=== PATIENT | female | born 1980 | race Caucasian/White ===

== ENCOUNTER 2017-04-05 11:36 | Emergency (ER) | payer OTHER ==
[~2017-04-05] VITALS: Ht 162.6 cm; Wt 77.1 kg
[2017-04-05] MEDS ORDERED: ONDANSETRON HCL/PF 4 MG/2 ML VIAL ONE (11:55)
[2017-04-05] MEDS ORDERED: HYDROMORPHONE 1 MG/1 ML DISP.SYRIN ONE ×2 (11:56→13:57)
[2017-04-05] MEDS ORDERED: ONDANSETRON HCL/PF 4 MG/2 ML VIAL IVP ONE (12:00)
[2017-04-05] MEDS ORDERED: HYDROMORPHONE INJ 2 MG/ML DISP.SYRIN IV ONE (12:00)
[2017-04-05] MEDS ORDERED: IV NS 0.9% 1,000 ML BAG IV ONE (12:00)
--- NOTE | 2017-04-05 12:00 | NUR ---
[id number] FROM HOME: CHEST PAIN, MOSTLY ON L SIDE, RADIATES TO BACK x 2 HR [employer]. SEEN BY MD AT BS. VSS. REPORTS BEING STRESSED LATELY. SAFETY AND COMFORT MEASURES PROVIDED. WILL MONITOR.
--- NOTE | 2017-04-05 12:05 | NUR ---
SHERRI AT BS.
--- NOTE | 2017-04-05 12:10 | NUR ---
IV ACCESS STARTED. BLOOD DRAWN. PT MEDICATED ORDERED.
[2017-04-05 12:13] LABS: BASOPHILS % (AUTO) 0.4 % (0.0-2.0); EOSINOPHILS # (AUTO) 0.2 /CMM (0.0-0.7); EOSINOPHILS % (AUTO) 2.3 % (0.0-6.0); HEMATOCRIT 45 % (33-45); HEMOGLOBIN 15.1 g/dL (11.5-14.8); MEAN CORPUSCULAR HEMOGLOBIN 30 PG (26.0-33.0); MEAN CORPUSCULAR HGB CONC 34 g/dl (31.0-36.0); MEAN CORPUSCULAR VOLUME 90 fL (82-100); MONOCYTES # (AUTO) 0.5 /CMM (0.1-1.30); MONOCYTES % (AUTO) 6.5 % (2.0-12.0); NEUTROPHILS # (AUTO) 5.3 /CMM (1.8-8.9); NEUTROPHILS % (AUTO) 65.8 % (43.0-81.0); PLATELET COUNT (AUTO) 252 /CMM (150-450); RDW COEFFICIENT OF VARIATION 12.5 (11.5-15.0); RED BLOOD CELL COUNT(AUTO) 5.03 MIL/uL (4.0-5.2)
[2017-04-05 12:14] LABS: APPEARANCE,URINE Clear (CLEAR); BILIRUBIN,URINE Negative (NEGATIVE); BLOOD, URINE Trace-lysed Ery/uL (NEGATIVE); COLOR,URINE Light yellow (YELLOW); KETONES,URINE Negative (NEGATIVE); LEUKOCYTE ESTERASE ,URINE Trace (NEGATIVE); NITRITE, URINE Negative (NEGATIVE); PROTEIN,URINE Negative (NEGATIVE); UGLUCOSE Negative (NEGATIVE); UROBILINOGEN,URINE 0.2 EU/dL (0.2)
[2017-04-05 12:20] LABS: BACTERIA,URINE Rare /HPF (None Seen); RBC,URINE 0-3 /HPF (0-2)
[2017-04-05 12:21] LABS: SQUAMOUS EPITHELIAL CELL,UR Moderate /HPF (None Seen)
--- NOTE | 2017-04-05 12:21 | NUR ---
ILDA CROWE AT BS.
[2017-04-05 12:22] LABS: CALCIUM, SERUM 8.6 mg/dL (8.5-10.1); CARBON DIOXIDE 24 mmol/L (21-32); CHLORIDE 103 mmol/L (98-107); CREATININE 0.7 mg/dL (0.6-1.3); GLUCOSE 90 mg/dL (74-106); POTASSIUM 4.3 mmol/L (3.5-5.1); SODIUM SERUM 135 mmol/L (136-145); UREA NITROGEN, BLOOD 10 mg/dL (7-18)
[2017-04-05 12:26] LABS: INR 0.83 (0.87-1.13); PROTHROMBIN TIME 8.6 SECS (9.5-12.7)
[2017-04-05 12:29] LABS: ALANINE AMINOTRANSFERASE 27 U/L (12-78); ALBUMIN 4.4 g/dL (3.4-5.0); ALKALINE PHOSPHATASE 57 U/L (46-116); ASPARTATE AMINOTRANSFERASE 17 U/L (15-37); BILIRUBIN,DIRECT 0.1 mg/dL (0.0-0.2); BILIRUBIN,TOTAL 0.4 mg/dL (0.2-1.0); LIPASE 121 U/L (73-393); TOTAL PROTEIN, SERUM 7.7 g/dL (6.4-8.2)
[2017-04-05 12:31] LABS: TROPONIN I < 0.017 ng/mL (0.00-0.056)
[2017-04-05] MEDS ORDERED: HYDROMORPHONE 1 MG/1 ML DISP.SYRIN IV ONE (13:30)
[2017-04-05] MEDS ORDERED: IV NS 0.9% 250 ML IV ONE (14:22)
[2017-04-05] MEDS ORDERED: IOHEXOL-350 100 ML VIAL IV ONE (14:22)
--- NOTE | 2017-04-05 14:37 | NUR ---
PT TAKEN TO CT.
--- NOTE | 2017-04-05 15:57 | NUR ---
Patient discharged to home in stable condition. Written and verbal after care instructions given. Patient verbalizes understanding of instruction.
--- NOTE | 2017-04-05 15:57 | NUR ---
IV removed. Catheter intact and site benign. Pressure and 4x4 applied to site. No bleeding noted.
[2017-04-05 16:10] VITALS: BP 124/71
== END 2017-04-05 16:11 | disposition home or self-care (01) ==
LOC: ER 11:40
DX: R07.81 Pleurodynia (principal); N83.209 Unspecified ovarian cyst, unspecified side; F17.200 Nicotine dependence, unspecified, uncomplicated; R79.1 Abnormal coagulation profile; Z85.850 Personal history of malignant neoplasm of thyroid
CPT/HCPCS: 36415; 71010; 71275; 76705; 80048; 80076; 81001; 83690; 84484; 84703; 85025; 85730; 93005; 96361; 96374; 96375; 96376; 99285; A4606; J1170 ×2; J2405; J7050; Q9967; Z7610; 81000-TC

== ENCOUNTER → 2017-07-31 | Emergency (ER) | payer OTHER ==
[~2017-07-31] VITALS: Ht 162.6 cm; Wt 79.4 kg
[~2017-07-31] MED LIST: CEFTRIAXONE 1GM BAG (ER ONLY) 50 ML IV ONE; CEFTRIAXONE 2 G in IV D5W 50 ML IV ONE; IV NS 0.9% 1,000 ML BAG IV ONE; MORPHINE SULFATE INJ 2 MG/ML DISP.SYRIN IV ONE; MORPHINE SULFATE INJ 4 MG/ML DISP.SYRIN ONE; ONDANSETRON HCL/PF 4 MG/2 ML VIAL IVP ONE
[2017-07-31 16:04] VITALS: BP 105/72
[2017-07-31 16:28] LABS: BASOPHILS % (AUTO) 0.6 % (0.0-2.0); EOSINOPHILS # (AUTO) 0.2 /CMM (0.0-0.7); EOSINOPHILS % (AUTO) 2.2 % (0.0-6.0); HEMATOCRIT 44 % (33-45); HEMOGLOBIN 15.2 g/dL (11.5-14.8); LYMPHOCYTES # (AUTO) 2.1 /CMM (0.8-4.8); LYMPHOCYTES % (AUTO) 25.9 % (20.0-44.0); MEAN CORPUSCULAR HEMOGLOBIN 30 PG (26.0-33.0); MEAN CORPUSCULAR HGB CONC 35 g/dl (31.0-36.0); MEAN CORPUSCULAR VOLUME 86 fL (82-100); MONOCYTES # (AUTO) 0.7 /CMM (0.1-1.30); MONOCYTES % (AUTO) 8.7 % (2.0-12.0); NEUTROPHILS # (AUTO) 5.2 /CMM (1.8-8.9); NEUTROPHILS % (AUTO) 62.6 % (43.0-81.0); PLATELET COUNT (AUTO) 205 /CMM (150-450); RDW COEFFICIENT OF VARIATION 11.9 (11.5-15.0); RED BLOOD CELL COUNT(AUTO) 5.13 MIL/uL (4.0-5.2); WHITE BLOOD COUNT (AUTO) 8.2 K/uL (4.3-11.0)
[2017-07-31 16:31] LABS: APPEARANCE,URINE Slightly Cloudy (CLEAR); BILIRUBIN,URINE Negative (NEGATIVE); BLOOD, URINE Trace-intact Ery/uL (NEGATIVE); COLOR,URINE Yellow (YELLOW); KETONES,URINE Negative (NEGATIVE); LEUKOCYTE ESTERASE ,URINE Small (NEGATIVE); NITRITE, URINE Negative (NEGATIVE); PROTEIN,URINE Negative (NEGATIVE); UGLUCOSE Negative (NEGATIVE); UROBILINOGEN,URINE 0.2 EU/dL (0.2)
[2017-07-31 16:38] LABS: CALCIUM, SERUM 8.8 mg/dL (8.5-10.1); CREATININE 0.7 mg/dL (0.6-1.3); POTASSIUM 3.8 mmol/L (3.5-5.1)
[2017-07-31 16:43] LABS: BACTERIA,URINE 2+ /HPF (None Seen); SQUAMOUS EPITHELIAL CELL,UR Moderate /HPF (None Seen)
--- NOTE | 2017-07-31 18:31 | NUR ---
PT GIVEN D/C INSTRUCTIONS. PT GIVEN NEW RX'S. PT HAS NO FURTHER QUESTIONS/CONCERNS. NAD. FAMILY AT BEDSIDE.
== END | disposition home or self-care (01) ==
LOC: ER 16:04
DX: N20.0 Calculus of kidney (principal); F17.200 Nicotine dependence, unspecified, uncomplicated; E03.9 Hypothyroidism, unspecified; Z85.850 Personal history of malignant neoplasm of thyroid
CPT/HCPCS: 36415; 74176; 80048; 81001; 84703; 85025; 87086; 96361; 96365; 96375; 99285; A4606; J0696 ×3; J2270; J7030; J7060; Z7610; 81000-TC

== ENCOUNTER 2017-08-10 15:03 | Emergency (ER) | payer OTHER ==
[~2017-08-10] VITALS: Ht 170.2 cm; Wt 84.8 kg
--- NOTE | 2017-08-10 15:10 | NUR ---
[id number] FROM HOME FOR FEVER, COUGH, PLEURITIC CHEST WALL PAIN, NAUSEA, BODY ACHES YESTERDAY, NAD NOTED, VSS, RESP EVEN AND UNLABORED, PT WAS PUT ON MONITOR, WAITING FOR MD GUTIERREZ.
[2017-08-10] MEDS ORDERED: HYDROCODONE BIT/HOMATROPINE 5 ML UDC ONE ×2 (15:28→22:51)
[2017-08-10] MEDS ORDERED: IBUPROFEN 600 MG TABLET PO ONE ×2 (15:28→15:30)
[2017-08-10] MEDS ORDERED: ACETAMINOPHEN ES 500 MG TABLET ONE (15:28)
[2017-08-10] MEDS ORDERED: HYDROCODONE BIT/HOMATROPINE 5 ML UDC PO ONE ×2 (15:30→23:00)
[2017-08-10] MEDS ORDERED: ACETAMINOPHEN ES 500 MG TABLET PO ONE (15:30)
[2017-08-10] MEDS ORDERED: IV NS 0.9% 1,000 ML BAG IV ONE (16:30)
[2017-08-10] MEDS ORDERED: ALBUTEROL FS 2.5 MG/3 ML VIAL.NEB NEB ONE (16:30)
[2017-08-10 16:44] LABS: BASOPHILS # (AUTO) 0.1 /CMM (0.0-0.2); BASOPHILS % (AUTO) 1.4 % (0.0-2.0); EOSINOPHILS # (AUTO) 0.1 /CMM (0.0-0.7); EOSINOPHILS % (AUTO) 0.9 % (0.0-6.0); HEMATOCRIT 40 % (33-45); HEMOGLOBIN 13.9 g/dL (11.5-14.8); LYMPHOCYTES # (AUTO) 0.3 /CMM (0.8-4.8); LYMPHOCYTES % (AUTO) 4.6 % (20.0-44.0); MEAN CORPUSCULAR HEMOGLOBIN 30 PG (26.0-33.0); MEAN CORPUSCULAR HGB CONC 35 g/dl (31.0-36.0); MEAN CORPUSCULAR VOLUME 86 fL (82-100); MONOCYTES # (AUTO) 0.5 /CMM (0.1-1.30); MONOCYTES % (AUTO) 7.2 % (2.0-12.0); NEUTROPHILS # (AUTO) 6.5 /CMM (1.8-8.9); NEUTROPHILS % (AUTO) 85.9 % (43.0-81.0); PLATELET COUNT (AUTO) 169 /CMM (150-450); RDW COEFFICIENT OF VARIATION 11.7 (11.5-15.0); RED BLOOD CELL COUNT(AUTO) 4.67 MIL/uL (4.0-5.2); WHITE BLOOD COUNT (AUTO) 7.5 K/uL (4.3-11.0)
[2017-08-10 17:09] LABS: CALCIUM, SERUM 8.6 mg/dL (8.5-10.1); CARBON DIOXIDE 21 mmol/L (21-32); CHLORIDE 101 mmol/L (98-107); CREATININE 0.7 mg/dL (0.6-1.3); GLUCOSE 96 mg/dL (74-106); POTASSIUM 3.4 mmol/L (3.5-5.1); SODIUM SERUM 136 mmol/L (136-145); UREA NITROGEN, BLOOD 9 mg/dL (7-18)
[2017-08-10] MEDS ORDERED: ALBUTEROL FS 2.5 MG/3 ML VIAL.NEB ONE (17:16)
[2017-08-10 17:18] LABS: TROPONIN I < 0.017 ng/mL (0.00-0.056)
[2017-08-10] MEDS ORDERED: IV NS 0.9% 250 ML IV ONE (18:24)
[2017-08-10] MEDS ORDERED: IOHEXOL-350 100 ML VIAL IV ONE (18:24)
[2017-08-10] MEDS ORDERED: CT SWABBABLE VALVE TRANS SET 1 EA INFUS.SET MC ONE (18:24)
[2017-08-10 19:32] LABS: ABG BASE EXCESS -2.7 mmol/L; ABG OXYGEN SATURATION 95.4 % (92.0-98.5); ABG PCO2 33.7 mmHg (35.0-45.0); ABG PH 7.415 (7.350-7.450); ABG PO2 80.6 mmHg (75.0-100.0); AaDO2 28.8 mmHg; COHb 0.6 % (0.5-1.5); MetHb 0.6 % (0.0-1.5); O2Hb 94.3 % (94.0-97.0); SITE, ABG Left Radial; VENT MODE, BG ROOM AIR
[2017-08-10] MEDS ORDERED: OSELTAMIVIR PHOSPHATE 75 MG CAPSULE ONE (19:59)
[2017-08-10] MEDS ORDERED: OSELTAMIVIR PHOSPHATE 75 MG CAPSULE PO ONE (20:00)
--- NOTE | 2017-08-10 23:27 | NUR ---
ASSUMED CARE. RECEIVED REPORT FROM ERVIN BLACK. PT RESTING QUIETLY, NO ACUTE DISTRESS NOTED, RESP EVEN AND UNLABORED. AWAITING VQ SCAN RESULT.
--- NOTE | 2017-08-10 23:58 | NUR ---
IV removed. Catheter intact and site benign. Pressure and 4x4 applied to site. No bleeding noted. Patient discharged to home in stable condition. Written and verbal after care instructions given. Patient verbalizes understanding of instruction. ambulatory with a steady gait noted. pt aaox4 no acute distress noted, resp even and unlabored. advice pt not to drie or operate any mahcinery due to pt was given narcotic medicine. pt verbalize understanding.
[2017-08-10 23:59] VITALS: BP 121/63
== END 2017-08-11 | disposition home or self-care (01) ==
LOC: ER 15:06
DX: J11.1 Influenza due to unidentified influenza virus with other respiratory manifestations (principal); E89.0 Postprocedural hypothyroidism; N83.209 Unspecified ovarian cyst, unspecified side; F17.200 Nicotine dependence, unspecified, uncomplicated; Z87.442 Personal history of urinary calculi; Z85.850 Personal history of malignant neoplasm of thyroid; Z90.89 Acquired absence of other organs
CPT/HCPCS: 36415; 36600; 71045-TC; 78582; 80048-TC; 82803-TC; 83880; 84484-TC; 85025-TC; 85378-TC; 87400; A4606; A9540; A9567; J7030; J7050; Q9967; Z7610

== ENCOUNTER 2018-11-30 00:44 | Emergency (ER) | payer MEDICAID, OTHER ==
[~2018-11-30] VITALS: Ht 160 cm; Wt 81.6 kg
--- NOTE | 2018-11-30 00:57 | NUR ---
URINE SAMPLE OBTAINED AND SENT TO LAB.
--- NOTE | 2018-11-30 00:59 | NUR ---
DR DAO IS AT THE BEDSIDE
--- NOTE | 2018-11-30 00:59 | NUR ---
PT PRESENTED TO THE ER WITH A C/O RUQ ABD PAIN AND LT FLANK PAIN. THE ABD PAIN STARTED 2 DAYS AGO, BUT THE FLANK PAIN STARTED TODAY. PT HAS HX OF GALLSTONES AND HAS BEEN DOING A KETOGENIC DIET FOR 1 WEEK. PT WAS NOT AWARE OF THE DIETARY RESTRICTIONS ASSOCIATED WITH GALLSTONES. PT WAS PLACED ON THE MONITOR AND CONTINUOUS PULSE OX.
[2018-11-30] MEDS ORDERED: MORPHINE SULFATE INJ 4 MG/ML DISP.SYRIN ONE (01:11)
[2018-11-30] MEDS ORDERED: ONDANSETRON HCL/PF 4 MG/2 ML VIAL ONE (01:11)
[2018-11-30 01:13] LABS: BASOPHILS # (AUTO) 0.1 /CMM (0.0-0.2); BASOPHILS % (AUTO) 0.7 % (0.0-2.0); EOSINOPHILS % (AUTO) 3.2 % (0.0-6.0); HEMATOCRIT 41 % (33-45); HEMOGLOBIN 14.1 g/dL (11.5-14.8); LYMPHOCYTES # (AUTO) 2.4 /CMM (0.8-4.8); MEAN CORPUSCULAR HGB CONC 34 g/dl (31.0-36.0); MEAN CORPUSCULAR VOLUME 86 fL (82-100); MONOCYTES # (AUTO) 0.6 /CMM (0.1-1.30); MONOCYTES % (AUTO) 7.3 % (2.0-12.0); NEUTROPHILS # (AUTO) 4.7 /CMM (1.8-8.9); NEUTROPHILS % (AUTO) 58.8 % (43.0-81.0); PLATELET COUNT (AUTO) 260 /CMM (150-450); RED BLOOD CELL COUNT(AUTO) 4.78 MIL/uL (4.0-5.2)
[2018-11-30 01:15] LABS: APPEARANCE,URINE Cloudy (CLEAR); BILIRUBIN,URINE Negative (NEGATIVE); BLOOD, URINE Trace-intact Ery/uL (NEGATIVE); COLOR,URINE Yellow (YELLOW); KETONES,URINE Negative (NEGATIVE); LEUKOCYTE ESTERASE ,URINE Small (NEGATIVE); NITRITE, URINE Negative (NEGATIVE); PH,URINE 6.5 (5.0-8.0); PROTEIN,URINE Negative (NEGATIVE); UGLUCOSE Negative (NEGATIVE); UROBILINOGEN,URINE 0.2 EU/dL (0.2)
[2018-11-30 01:20] LABS: CALCIUM, SERUM 8.4 mg/dL (8.5-10.1); CARBON DIOXIDE 25 mmol/L (21-32); CHLORIDE 102 mmol/L (98-107); CREATININE 0.6 mg/dL (0.6-1.3); GLUCOSE 91 mg/dL (74-106); POTASSIUM 3.6 mmol/L (3.5-5.1); SODIUM SERUM 137 mmol/L (136-145); UREA NITROGEN, BLOOD 12 mg/dL (7-18)
[2018-11-30 01:26] LABS: ALANINE AMINOTRANSFERASE 22 U/L (12-78); ALBUMIN 3.7 g/dL (3.4-5.0); ALKALINE PHOSPHATASE 62 U/L (46-116); ASPARTATE AMINOTRANSFERASE 12 U/L (15-37); BILIRUBIN,TOTAL 0.2 mg/dL (0.2-1.0); LIPASE 198 U/L (73-393); TOTAL PROTEIN, SERUM 7.2 g/dL (6.4-8.2)
[2018-11-30] MEDS ORDERED: MORPHINE SULFATE INJ 2 MG/ML DISP.SYRIN IV ONE (01:30)
[2018-11-30] MEDS ORDERED: IV NS 0.9% 500 ML BAG IV ONE (01:30)
[2018-11-30] MEDS ORDERED: ONDANSETRON HCL/PF 4 MG/2 ML VIAL IVP ONE (01:30)
--- NOTE | 2018-11-30 01:41 | NUR ---
US IN PROGRESS AT THE BEDSIDE.
--- NOTE | 2018-11-30 01:50 | NUR ---
PT AMBULATED TO THE BATHROOM WITH A STEADY GAIT.
--- NOTE | 2018-11-30 01:51 | NUR ---
PT C/O RUQ ABD PAIN AND LT FLANK PAIN 01/21. DR DAO NOTIFIED.
[2018-11-30] MEDS ORDERED: HYDROMORPHONE 1 MG/1 ML DISP.SYRIN ONE (01:53)
--- NOTE | 2018-11-30 01:58 | NUR ---
PT WHEELED TO RADIOLOGY ON [facility]
[2018-11-30] MEDS ORDERED: HYDROMORPHONE 1 MG/1 ML DISP.SYRIN IV ONE (02:00)
--- NOTE | 2018-11-30 02:07 | NUR ---
PT RETURNED FROM CT.
[2018-11-30 02:15] LABS: BACTERIA,URINE Few /HPF (None Seen); SQUAMOUS EPITHELIAL CELL,UR Moderate /HPF (None Seen); WBC,URINE 81-100 /HPF (0-3)
--- NOTE | 2018-11-30 02:28 | NUR ---
PT REC'D 2 WARM BLANKETS AND STATED THAT HER PAIN WAS NOW A 4-5/10. PT STATED THAT SHE FEELS MUCH BETTER.
--- NOTE | 2018-11-30 02:30 | NUR ---
CALLED [facility] RE: US AND CT READS. BOTH ARE ON THE HOTLINE.
--- NOTE | 2018-11-30 02:47 | NUR ---
REPORT GIVEN TO ERVIN SOLOMON/CHG.
--- NOTE | 2018-11-30 03:26 | NUR ---
Patient discharged to home in stable condition. Written and verbal after care instructions given. Patient verbalizes understanding of instruction. IV removed. Catheter intact and site benign. Pressure and 4x4 applied to site. No bleeding noted. Pt ambulatory with a steady gait
[2018-11-30 03:27] VITALS: BP 129/82
== END 2018-11-30 03:28 | disposition home or self-care (01) ==
LOC: ER 00:45
DX: K80.50 Calculus of bile duct without cholangitis or cholecystitis without obstruction (principal); K56.7 Ileus, unspecified; F17.200 Nicotine dependence, unspecified, uncomplicated; Z85.850 Personal history of malignant neoplasm of thyroid; Z98.890 Other specified postprocedural states
CPT/HCPCS: 36415; 74176; 76705; 80048; 80076; 81001; 83690; 84484; 84703; 85025; 85730; 87086; 93005; 96374; 96375; 99284; J1170; J2270; J2405; J7040; 81000-TC

== ENCOUNTER 2019-02-11 13:58 | Emergency (ER) | payer MEDICAID ==
[2019-02-11] MEDS ORDERED: ONDANSETRON HCL/PF 4 MG/2 ML VIAL ONE (14:13)
[2019-02-11] MEDS ORDERED: ONDANSETRON HCL/PF 4 MG/2 ML VIAL IVP ONE (14:30)
[2019-02-11] MEDS ORDERED: IV NS 0.9% 1,000 ML BAG IV ONE (14:30)
== END 2019-02-11 15:52 | disposition home or self-care (01) ==
DX: R11.2 Nausea with vomiting, unspecified (principal); R51 Headache; E03.9 Hypothyroidism, unspecified; F17.200 Nicotine dependence, unspecified, uncomplicated; Z85.850 Personal history of malignant neoplasm of thyroid; Z98.890 Other specified postprocedural states
CPT/HCPCS: 36415; 80048; 80076; 83690; 84702; 85025; 96361; 96374; 99283; J2405; J7030

== ENCOUNTER 2023-07-19 17:13 | Emergency (ER) | payer MEDICAID, OTHER ==
[~2023-07-19] VITALS: Ht 172.7 cm; Wt 81.6 kg
[~2023-07-19 17:13] MED LIST changes: -CEFTRIAXONE 1GM BAG (ER ONLY) 50 ML IV ONE; -CEFTRIAXONE 2 G in IV D5W 50 ML IV ONE; -IV NS 0.9% 1,000 ML BAG IV ONE; +KETO10TA2 PO; -MORPHINE SULFATE INJ 2 MG/ML DISP.SYRIN IV ONE; -MORPHINE SULFATE INJ 4 MG/ML DISP.SYRIN ONE; -ONDANSETRON HCL/PF 4 MG/2 ML VIAL IVP ONE; +TRIA80OI TP
[2023-07-19] MEDS ORDERED: ACETAMINOPHEN ES 500 MG TABLET ONE (17:36)
[2023-07-19] MEDS ORDERED: ONDANSETRON 4 MG TAB.RAPDIS ONE (17:36)
[2023-07-19] MEDS: ONDANSETRON 4 MG TAB.RAPDIS SL ONE (18:08)
[2023-07-19] MEDS: ACETAMINOPHEN ES 500 MG TABLET PO ONE (18:08)
[2023-07-19 18:57] LABS: PREGNANCY TEST URINE QUAL NEGATIVE (NEGATIVE)
[2023-07-19] MEDS ORDERED: HYDROCODONE/APAP 5/325MG TABLET ONE (19:57)
[2023-07-19] MEDS ORDERED: CYCLOBENZAPRINE 10 MG TABLET ONE (19:58)
[2023-07-19] MEDS: CYCLOBENZAPRINE 10 MG TABLET PO ONE (20:26)
[2023-07-19] MEDS: HYDROCODONE/APAP 5/325MG TABLET PO ONE (20:26)
[2023-07-19] MEDS ORDERED: ONDA4TAB11 PO (20:28)
[2023-07-19 20:46] VITALS: BP 118/72; TEMP 98.1; O2SAT 100
== END 2023-07-19 20:46 | disposition home or self-care (01) ==
LOC: ER 17:26
DX: S06.0XAA Concussion with loss of consciousness status unknown, initial encounter (principal); M25.572 Pain in left ankle and joints of left foot; R51.9 Headache, unspecified; R11.2 Nausea with vomiting, unspecified; F17.200 Nicotine dependence, unspecified, uncomplicated; W01.0XXA Fall on same level from slipping, tripping and stumbling without subsequent striking against object, initial encounter; Y93.89 Activity, other specified; Y92.89 Other specified places as the place of occurrence of the external cause; Y99.8 Other external cause status
CPT/HCPCS: 99284; 70450; 72170; 73610; 84703; Q0162